=== PATIENT | male | born 1975 | race Two or more races ===

== ENCOUNTER 2023-02-28 05:08 | Emergency (ER) | payer MEDICAID, OTHER ==
[~2023-02-28] VITALS: Ht 172.7 cm; Wt 99.8 kg
[2023-02-28 11:01] VITALS: BP 133/80; TEMP 98; O2SAT 99
== END 2023-02-28 11:01 | disposition home or self-care (01) ==
LOC: ER 05:10 → EDBD 05:10 → ER 11:01
DX: F10.129 Alcohol abuse with intoxication, unspecified (principal); Y90.9 Presence of alcohol in blood, level not specified